=== PATIENT | female | born 1990 | race African-American/Black ===

== ENCOUNTER 2019-01-29 05:26 | Inpatient (IN) | payer BC, MEDICAID, OTHER ==
[2019-01-29] MEDS ORDERED: Bicitra 30 ML UDCUP PO SCH (06:00)
[2019-01-29] MEDS ORDERED: CEFAZOLIN 2 GM in Premix Bag 1 BAG IVPB SCH (06:00)
[2019-01-29] MEDS ORDERED: Lactated Ringer's 1,000 ML IV SCH (06:00)
[2019-01-29] MEDS ORDERED: Promethazine HCl 25 MG/ML VIAL IM PRN ×2 (06:00→07:27)
[2019-01-29] MEDS ORDERED: Ondansetron PF 4 MG/2 ML Vial IVP PRN ×3 (06:00→08:49)
[2019-01-29] MEDS ORDERED: hydrALAZINE 20 MG/ML VIAL SLOW IVP PRN ×2 (06:00→08:49)
[2019-01-29 06:20] LABS: Hemoglobin 10.9 g/dL (12.0-16.0); Mean Corpuscular HGB CONC 34.6 g/dL (32.0-36.0); Mean Corpuscular Hemoglobin 33.6 pg (27.0-31.0); Mean Corpuscular Volume 96.9 fL (78.0-98.0); Mean Platelet Volume 7.3 fL (7.4-10.4); Platelet Count 357 thou/uL (130-400); RBC Distribution Width 12.8 % (11.5-14.5); Red Blood Cell (RBC) Count 3.25 mill/uL (4.20-5.40); White Blood Cell (WBC) Count 11.3 thou/uL (4.8-10.8)
[2019-01-29 06:27] VITALS: BMI 34.0
[2019-01-29] MEDS: Lactated Ringer's 1,000 ML IV SCH ×3 (06:30→16:17)
[2019-01-29 06:57] LABS: Syphilis Antibody Nonreactive (Nonreactive); Syphilis Antibody Index 0.03 S/CO (<1.00 Non-Reactive)
[2019-01-29 07:07] LABS: HBSAg Index 0.18 S/CO (0-0.99); Hep B Surf Ag Non-Reactive S/CO (NonReactive)
[2019-01-29] MEDS ORDERED: Oxytocin 10 UNITS/ML VIAL ONE (07:12)
[2019-01-29] MEDS ORDERED: MORPHINE 5 MG/10 ML PF VIAL ONE (07:12)
[2019-01-29] MEDS ORDERED: PHENYLEPHRINE-NS 100 MCG/ML 10 ML SYRINGE ONE (07:13)
[2019-01-29] MEDS ORDERED: Ondansetron HCl/PF 4 MG/2 ML Vial IVP PRN (07:27)
[2019-01-29] MEDS ORDERED: Naloxone HCl 0.4 mg/ml Vial IV PRN (07:27)
[2019-01-29] MEDS ORDERED: diphenhydrAMINE 50 MG/ML VIAL IVP PRN (07:27)
[2019-01-29] MEDS ORDERED: Naloxone HCl 0.4 mg/ml Vial IVP PRN ×2 (07:27)
[2019-01-29] MEDS ORDERED: L&D-Morphine 4 MG/ML VIAL SLOW IVP PRN (07:27)
[2019-01-29] MEDS ORDERED: Meperidine HCl/PF 25 MG/ML VIAL SLOW IVP PRN (07:27)
[2019-01-29] MEDS ORDERED: Promethazine HCl 25 MG SUPP PR PRN (07:27)
[2019-01-29] MEDS ORDERED: HYDROmorphone 2 MG/ML VIAL SLOW IVP PRN (07:27)
[2019-01-29] MEDS ORDERED: Communication Order-Pharmacy FS SCH (07:30)
[2019-01-29] MEDS ORDERED: Ketorolac Tromethamine 30 MG/ML VIAL IVP SCH (07:30)
[2019-01-29] MEDS ORDERED: Ketorolac Tromethamine 30 MG/ML VIAL ONE (08:45)
[2019-01-29] MEDS ORDERED: HYDROcodone/Acetaminophen 5/325 mg Tablet PO PRN (08:49)
[2019-01-29] MEDS ORDERED: Bisacodyl 10 MG SUPP PR PRN (08:49)
[2019-01-29] MEDS ORDERED: Acetaminophen 325 MG TAB PO PRN (08:49)
[2019-01-29] MEDS ORDERED: Adacel (T-DAP) 0.5 ML SYRINGE IM ONE (08:49)
[2019-01-29] MEDS ORDERED: Lanolin Ointment 7 GM TUBE TOP PRN (08:49)
[2019-01-29] MEDS ORDERED: diphenhydrAMINE 25 MG CAP PO PRN (08:49)
[2019-01-29] MEDS ORDERED: Meperidine HCl/PF 25 MG/ML VIAL IM PRN (08:49)
[2019-01-29] MEDS ORDERED: Misoprostol 200 MCG TAB PR PRN (08:49)
[2019-01-29] MEDS ORDERED: NS / Oxytocin 40 units/1000ml 1,000 ML IV SCH (09:00)
[2019-01-29] MEDS: Prenatal Vitamin 1 TAB PO SCH (13:46)
[2019-01-29] MEDS: Ferrous Sulfate 325 MG TAB PO SCH ×2 (13:46→20:06)
[2019-01-29] MEDS: Docusate Calcium (SURFAK) 240 MG CAP PO SCH ×2 (13:46→20:06)
[2019-01-29] MEDS: Ibuprofen 800 MG TAB PO SCH ×2 (13:47→20:06)
[2019-01-29] MEDS: Ketorolac Tromethamine 30 MG/ML VIAL IVP PRN ×2 (15:06→21:01)
[2019-01-29] MEDS ORDERED: Sodium Chloride 0.9% 10 ML ONE (20:13)
[2019-01-30] MEDS: Lactated Ringer's 1,000 ML IV SCH ×4 (02:13→22:59)
[2019-01-30 04:21] LABS: Mean Corpuscular HGB CONC 34.2 g/dL (32.0-36.0); Mean Corpuscular Hemoglobin 33.8 pg (27.0-31.0); Mean Corpuscular Volume 98.7 fL (78.0-98.0); Mean Platelet Volume 7.4 fL (7.4-10.4); Platelet Count 301 thou/uL (130-400); Red Blood Cell (RBC) Count 2.95 mill/uL (4.20-5.40); White Blood Cell (WBC) Count 11.6 thou/uL (4.8-10.8)
[2019-01-30] MEDS: Ibuprofen 800 MG TAB PO SCH ×3 (05:38→21:32)
[2019-01-30] MEDS: Ferrous Sulfate 325 MG TAB PO SCH ×2 (09:23→21:32)
[2019-01-30] MEDS: Prenatal Vitamin 1 TAB PO SCH (09:23)
[2019-01-30] MEDS: Simethicone Chewable 80 MG TAB PO PRN ×3 (09:23→21:34)
[2019-01-30] MEDS: Docusate Calcium (SURFAK) 240 MG CAP PO SCH ×2 (09:23→21:32)
[2019-01-30] MEDS: HYDROcodone/Acetaminophen 5/325 mg Tablet PO PRN (13:51)
--- NOTE | 2019-01-30 14:29 | OP ---
DATE OF PROCEDURE: 01/29/2019 [employer] ATTEND[employer] SURGEONS: 1. Nidhi Wyman MD. 2. Fredi Shine MD. PREOPERATIVE DIAGNOSES: 1. Term intrauterine at 39 weeks. 2. Prior section. 3. No trial of labor. POSTOPERATIVE DIAGNOSES: 1. Term intrauterine at 39 weeks. 2. Prior section. 3. No trial of labor. PROCEDURE PERFORMED: Repeat low-transverse section. ANESTHESIA: Spinal catheterization. FINDINGS: 1. Vigorous female infant, 7 pounds 6 ounces. Apgars 9 and 10. 2. Normal uterus, tubes, and ovaries. SPECIMENS REMOVED: Cord blood. ESTIMATED BLOOD LOSS: Approximately 600 mL (QBL 545 mL). COMPLICATIONS: None. DESCRIPTION OF PROCEDURE: After thorough consent and counseling, Ms. Miller was taken to the operating room and an adequate level of anesthesia was obtained via spinal catheterization. The patient was prepped and draped in usual sterile fashion for abdominal surgery. A Crespo was placed in the bladder, which was noted to be draining clear urine. Attention was then turned to perform the repeat low-transverse incision. A team time-out was performed per protocol. A Pfannenstiel incision was made and carried sharply to the fascia, which was also sharply incised. The midline was identified and the rectus muscles were retracted laterally. The abdominal peritoneal cavity was entered with usual safeguard carried out. A retractor was placed and a bladder flap was created on the vesicouterine peritoneum. A low-transverse incision was made on the well-developed lower uterine segment. Upon entering the amniotic sac, copious amount of clear amniotic fluid was visualized. The was noted to be vertex presentation. The occiput anterior position still high in the pelvis. Head was delivered and baby was bulb suctioned on the abdomen. Shoulders and body were then delivered in an atraumatic fashion. The cord was doubly clamped and cut, and the infant was handed to the Pediatric Team in attendance for the delivery. The was a vigorous viable female weighing 7 pounds 6 ounces with Apgars of 9 and 10 obtained at one and five minutes respectively. Cord blood was obtained. The placenta was manually removed from the uterus. The uterus was exteriorized and good tone was noted. The uterine cavity was cleared of any remaining clot and fluid. The low-transverse incision was closed in a running locking ligature of #1 chromic. Several [id number] ligatures of #1 chromic were placed to facilitate strength and hemostasis. The vesicouterine peritoneum was reapproximated to the lower segment with running ligature of 3-0 Monocryl suture. Posterior cul-de-sac and gutters were cleared of clot and fluid. The uterus was returned to the abdomen. Good tone and hemostasis were observed. The peritoneum was closed in a running ligature of 2-0 Vicryl. Lap, sponge, needle counts were correct. The rectus muscles were reapproximated in midline with interrupted ligatures of 2-0 Vicryl and 0 chromic suture. The fascia was then closed with 2 ligatures of 0 Vicryl suture, which was tied in the midline. Good fascial integrity was noted. The incision was irrigated with copious amount of warm normal saline. The subcutaneous tissue was closed with interrupted ligatures of 2-0 plain. The skin was closed with subcuticular stitch of 4-0 Monocryl. The incision was then dressed with Dermabond. A pressure dressing and ice packs were subsequently placed. Lap, sponge, and needle counts were correct x3. The estimated blood loss during the surgical procedure was less than 600 mL. Team debriefing was performed. The patient was taken to the recovery room in good condition. Immediately following surgery, the patient and family were made aware of the surgical procedure and operative findings. Questions were answered to their satisfaction. Ms. Miller was very appreciative of the care rendered here at [facility] this morning. Mother and baby doing well postoperatively. Job ID: [id number]
[2019-01-31] MEDS: HYDROcodone/Acetaminophen 5/325 mg Tablet PO PRN (02:49)
[2019-01-31] MEDS: Ibuprofen 800 MG TAB PO SCH ×3 (05:43→20:37)
[2019-01-31] MEDS: Lactated Ringer's 1,000 ML IV SCH ×2 (09:40→17:25)
[2019-01-31] MEDS: Docusate Calcium (SURFAK) 240 MG CAP PO SCH ×2 (09:41→20:37)
[2019-01-31] MEDS: Prenatal Vitamin 1 TAB PO SCH (09:41)
[2019-01-31] MEDS: Ferrous Sulfate 325 MG TAB PO SCH ×2 (09:42→20:36)
[2019-01-31 20:18] VITALS: BP 109/60; TEMP 98.1
== END 2019-01-31 21:25 | disposition home or self-care (01) | DRG 788 ==
LOC: L&D-LIB 05:26 → 3SW 11:00
PROVIDERS: ADMIT Obstetrics & Gynecology; ATTEND Obstetrics & Gynecology
PROC: 10D00Z1 Extraction of Products of Conception, Low, Open Approach (ICD-10-PCS; principal; 2019-01-29)
DX: O34.211 Maternal care for low transverse scar from previous cesarean delivery (principal); O76 Abnormality in fetal heart rate and rhythm complicating labor and delivery; O99.02 Anemia complicating childbirth; D64.9 Anemia, unspecified; Z3A.39 39 weeks gestation of pregnancy; Z37.0 Single live birth; Z88.2 Allergy status to sulfonamides
CPT/HCPCS: 36415; 51702; 85027; 86780; 86850; 86900; 86901; 87340; J0690; J1885; J2274; J2590